=== PATIENT | female | born 1960 | race African-American/Black ===

== ENCOUNTER 2018-12-25 08:43 | Outpatient (CLI) ==
[2014-11-04 15:32] VITALS: BMI 37.2
--- NOTE | 2018-12-25 09:09 | DI ---
Exam: Two views of the chest. Comparison: 11/04/2014. Reason for exam: Cough. FINDINGS: No pneumothorax, pleural effusion, or focal consolidation. The cardiac silhouette is not enlarged. The imaged osseous structures appear grossly unremarkable without acute fracture. Impression: No acute cardiopulmonary process.
== END 2018-12-25 08:44 | disposition home or self-care (01) ==
LOC: RAD 08:43
PROVIDERS: ATTEND Internal Medicine
DX: R05 Cough (principal)